=== PATIENT | male | born 1960 | race Caucasian/White ===

== ENCOUNTER 2017-12-31 11:13 | Emergency (ER) | payer BC ==
[2017-12-31] MEDS ORDERED: Tetanus-Diptheria Toxoids* 0.5 ML SYRINGE IM ONE (13:44)
--- NOTE | 2017-12-31 13:45 | UC ---
Laceration HPI - HPI Summary HPI Summary: 57 year old RHD male here after he sustained laceration to left hand. Reports he was drilling into a wall, and there was metal sheet right next to him. When the drilling gave in, he reports he sustained cut to his left hand. Pressure applied and cleaned with peroxide. This happened about 8 oclock last night (18 hours ago). Does not recall the last tetanus vaccination. Addendum: Last tetanus 11/2013 as per who called and checked. - History Of Current Complaint Stated Complaint: LFT HAND LAC Time Seen by Provider: 12/31/17 13:33 Hx Obtained From: Patient Laceration Location: Hand Mechanism Of Injury: Sharp Trauma Onset/Duration: Sudden Onset Severity: Mild Aggravating Factors: Movement Hands: 1 - linear laceration over dorsal aspect of hand - Allergies/Home Medications Allergies/Adverse Reactions: Allergies Allergy/AdvReac Type Severity Reaction Status Date / Time No Known Allergies Allergy Verified 12/31/17 13:48 Home Medications: Home Medications Cholecalciferol TAB* [Vitamin D TAB*] 50,000 units PO MONTHLY 12/31/17 [History Confirmed 12/31/17] Fish Oil With Krill 2 tab PO BID 12/31/17 [History Confirmed 12/31/17] Hydrochlorothiazide TAB* [Hydrodiuril TAB*] 25 mg PO DAILY 12/31/17 [History Confirmed 12/31/17] Lisinopril 5 mg PO DAILY 12/31/17 [History Confirmed 12/31/17] Lovastatin [Altoprev] 20 mg PO QPM 12/31/17 [History Confirmed 12/31/17] Naproxen [Naproxen 250 mg tab] 500 mg PO BID 12/31/17 [History Confirmed ] Tamsulosin CAP* [Flomax CAP*] 0.4 mg PO BEDTIME 12/31/17 [History Confirmed ] Ubidecarenone [Co Q-10] 30 mg PO DAILY 12/31/17 [History Confirmed 12/31/17] PMH/Surg Hx/FS Hx/Imm Hx Endocrine History: Dyslipidemia Cardiovascular History: Hypertension - Surgical History Surgical History: Yes Surgery Procedure, Year, and Place: Left arm surgery-2000. Left elbow surgery 2017 (?septic joint vs. compartment) - Social History Alcohol Use: Occasionally Substance Use Type: None Smoking Status (MU): Never Smoked Tobacco Review of Systems Constitutional: Negative Skin: Negative, Other - laceration Eyes: Negative ENT: Negative Respiratory: Negative Cardiovascular: Negative Gastrointestinal: Negative Genitourinary: Negative Motor: Negative Neurovascular: Negative Musculoskeletal: Negative Neurological: Negative Psychological: Negative All Other Systems Reviewed And Are Negative: Yes Physical Exam Triage Information Reviewed: Yes Vital Signs Reviewed: Yes Eye Exam: Normal ENT Exam: Normal Neck exam: Normal Respiratory Exam: Normal Cardiovascular Exam: Normal Musculoskeletal: Positive: ROM Intact - hand: SILT in R/U/M, Motor intact in AIN /PIN/U Skin: Positive: Other - 1cm laceartion over dorsal aspect of hand at the border 5th MCP Laceration Repair - Laceration Repair 3 Description: Linear Laceration Size After Repair: Length (cm) - 2cm Contamination/FB Removal: 2.5 cm Type Injection: Local Anesthesia Used: 2.0% Lido Cleansing Completed Via Routine Prep: Yes Irrigation With Pressure Irrigation Device: Yes Closure Method: Single Layer Suture Of: SQ Suture Type: Nylon Laceration Course/Dx - Differential Dx - Laceration/Wound Differental Diagnoses: Abrasion, Cellulitis, Laceration Provider Diagnoses: Laceration Discharge - Sign-Out/Discharge Documenting (check all that apply): Discharge/Admit/Transfer - Discharge Plan Condition: Good Disposition: HOME Prescriptions: Cephalexin CAP* [Keflex CAP*] 500 mg PO TID 5 Days #15 cap Patient Education Materials: Laceration (ED), Stitches Removal (ED) Referrals: Miguel Angel Vergara MD [Primary Care Provider] - Additional Instructions: take antibiotics as prescribed to prevent infection. Keep wound dry and clean. Return on January 06 for suture removal. - Billing Disposition and Condition Condition: GOOD Disposition: HOME Images Hands: 1 - 2.5 cm laceration
[2017-12-31 13:47] VITALS: BP 129/75
[2017-12-31] MEDS ORDERED: Tetan/Diph/Pertus SYR(Tdap)* 0.5 ML SYR(BOOSTRIX) use SYR IM ONE (14:01)
[2017-12-31] MEDS ORDERED: Lidocaine 2% 10 ML* VIAL INJ ONE (14:29)
[2017-12-31] MEDS ORDERED: Lidocaine 2% PF * 5 ML VIAL INJ ONE (14:37)
== END 2017-12-31 15:11 | disposition home or self-care (01) ==
LOC: UCCORT 11:13
DX: S61.412A Laceration without foreign body of left hand, initial encounter (principal); W26.8XXA Contact with other sharp object(s), not elsewhere classified, initial encounter; Y93.89 Activity, other specified; Y92.9 Unspecified place or not applicable
CPT/HCPCS: 12001; 90715; 99202; G0463